=== PATIENT | female | born 1980 | race Caucasian/White ===

== ENCOUNTER → 2020-12-25 | Outpatient (CLI) | payer BC ==
--- NOTE | 2020-12-26 10:11 | MM ---
Reason for exam: screening (asymptomatic). Last mammogram was performed 6 years ago. History: Family history of breast cancer in mother at age 50 and breast cancer in maternal aunt. Took hormonal contraceptives for 8 years beginning at age 15. Physical Findings: A clinical breast exam by your physician is recommended on an annual basis and results should be correlated with mammographic findings. MG Screening Mammo w CAD Bilateral CC and MLO view(s) were taken. Prior study comparison: January 02, 2015, bilateral MG diagnostic mammo w CAD PEDRITO. The breast tissue is heterogeneously dense. This may lower the sensitivity of mammography. Finding: There is a 9 mm indistinct round mass located 6-7 cm from the nipple in the middle, central position of the left breast. There is a chronic nodularity in the right breast. New finding since January 02, 2015. ASSESSMENT: Incomplete: need additional imaging evaluation, BI-RAD 0 RECOMMENDATION: Special view mammogram and ultrasound of the left breast. [facility] will attempt to contact patient to return for supplemental views and ultrasound.
== END | disposition home or self-care (01) ==
LOC: RADMAMWWP 09:55
PROVIDERS: ATTEND Pediatrics
DX: Z12.31 Encounter for screening mammogram for malignant neoplasm of breast (principal); Z80.3 Family history of malignant neoplasm of breast
CPT/HCPCS: 77067

== ENCOUNTER → 2021-01-08 | Outpatient (CLI) | payer BC ==
--- NOTE | 2021-01-08 11:49 | MM ---
Reason for exam: additional evaluation requested from abnormal screening. Last mammogram was performed less than 1 month ago. History: Family history of breast cancer in mother at age 50 and breast cancer in maternal aunt. Took hormonal contraceptives for 8 years beginning at age 15. Physical Findings: Nurse did not find any significant physical abnormalities on exam. MG Work Up Mamm w CAD LT Spot compression CC, spot compression MLO, and LM view(s) were taken of the left breast. Prior study comparison: December 25, 2020, bilateral MG screening mammo w CAD. January 02, 2015, bilateral MG diagnostic mammo w CAD PEDRITO. The breast tissue is heterogeneously dense. This may lower the sensitivity of mammography. Finding: There is a 8-10 mm round mass located 6-7 cm from the nipple in the middle position of the left breast, persists on additional views. These results were verbally communicated with the patient and result sheet given to the patient on 01/08/21. ASSESSMENT: Incomplete: need additional imaging evaluation, BI-RAD 0 RECOMMENDATION: Ultrasound of the left breast.
--- NOTE | 2021-01-08 11:51 | USB ---
Reason for exam: additional evaluation requested from abnormal screening. History: Family history of breast cancer in mother at age 50 and breast cancer in maternal aunt. Took hormonal contraceptives for 8 years beginning at age 15. US Breast Workup Limited LT Left limited breast ultrasound including focal area of concern, retroareolar and axilla demonstrates a 0.3 x 0.3 x 0.2cm oval, cystic lesion at 12 o'clock, a 0.3 x 0.3 x 0.3cm oval, cystic lesion at 3 o'clock, a 0.8 x 0.3 x 0.3cm oval, cystic cluster at 3 o'clock and a 1.1 x 1.3 x 1.0cm oval lymph node at the axilla. These results were verbally communicated with the patient and result sheet given to the patient on 01/08/21. ASSESSMENT: Probably benign, BI-RAD 3 RECOMMENDATION: Follow-up diagnostic mammogram of the left breast in 6 months.
--- NOTE | 2021-01-08 14:05 | XR ---
EXAMINATION TYPE: XR chest 2V DATE OF EXAM: 01/08/2021 COMPARISON: 02/27/2016 HISTORY: Chest pain TECHNIQUE: Frontal and lateral views of the chest are obtained. FINDINGS: There is no focal air space opacity. No evidence for pneumothorax. No pleural effusion. The cardiac silhouette size is within normal limits. The osseous structures are grossly intact. IMPRESSION: 1. No acute cardiopulmonary process.
== END | disposition home or self-care (01) ==
LOC: RADMAMWWP 10:05
PROVIDERS: ATTEND Pediatrics
DX: N63.25 Unspecified lump in the left breast, overlapping quadrants (principal); Z80.3 Family history of malignant neoplasm of breast
CPT/HCPCS: 71046; 77065

== ENCOUNTER → 2025-01-03 | Outpatient (CLI) | payer OTHER ==
--- NOTE | 2025-01-04 12:27 | MR ---
EXAMINATION TYPE: MR knee LT wo con DATE OF EXAM: 01/03/2025 5:40 PM COMPARISON: MR knee 05/31/2023. 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 No Gadolinium was given. IV Contrast: mL (none if empty) FINDINGS: Medial meniscus: Intact Medial femorotibial cartilage: Grade-II chondromalacia. Medial collateral ligament: Intact Lateral meniscus: Intact Lateral femorotibial cartilage: Grade-II chondromalacia. Lateral collateral ligament complex: Intact Patellofemoral alignment: Normal Patellofemoral cartilage: Severe degeneration with full-thickness cartilage loss and subchondral bony edema involving the patellar lateral and medial facet. Extensor mechanism: Intact. Joint/bursal fluid: None. Muscles/tendons: Increased PD signal within the medial head of the gastrocnemius near its origin with cystic change. The patellar tendon, quadriceps tendon, IT band, pes anserinus tendons, semimembranos us tendon, popliteus tendon, and biceps femoris tendon are all within normal limits. Bone marrow: Bony edema within the patellar medial patellar facet. Additional high PD with edema near the posterior medial femoral condyle near the origin of the medial head of the gastrocnemius.. Anterior cruciate ligament: Intact. Posterior cruciate ligament: Intact. Soft tissues: Soft tissue marker the anterior knee correlates with cystic lesion just anterior to the patellar retinaculum on the right measuring 10 x 6 mm. Just deep to the retinaculum is more cyst ic change. Series 411 image 25. Additional cystic change just deep to the medial retinaculum possibly migrated ganglion cyst from the joint space itself series 411 image 18 and series 411 image 23. IMPRESSION: 1. Palpable marker along the anterior medial leg correlates with 10 x 6 mm small subcutaneous cystic lesion just anterior to the patellar medial retinaculum. Correlate for history of trauma. Additional ganglion cysts thought to be migrated from the joint just deep to the medial patellar retinaculum. F indings are new from 05/31/2023. 2. Severe degeneration changes of patellofemoral joint with bony edema within the patella. 3. Tendinosis of the origin of the medial head of the gastrocnemius. 4. Bony edema within the medial posterior femoral condyle are clear versus secondary to tendinosis o f the medial head of gastrocnemius first trauma. Correlate clinically. [facility], , 01/04/2025 12:25 PM
== END | disposition home or self-care (01) ==
LOC: RADMRIMAIN 16:51
PROVIDERS: ATTEND Orthopaedic Surgery
DX: D17.24 Benign lipomatous neoplasm of skin and subcutaneous tissue of left leg (principal); D49.2 Neoplasm of unspecified behavior of bone, soft tissue, and skin; M67.462 Ganglion, left knee; M17.12 Unilateral primary osteoarthritis, left knee; R60.9 Edema, unspecified; M62.89 Other specified disorders of muscle

== ENCOUNTER → 2025-01-17 | Day surgery (SDC) | payer BC, OTHER ==
[2025-01-16 11:29] VITALS: BMI 40.8
[~2025-01-17] MED LIST: LIDOCAINE 1% (10MG/ML) FOR IV START INTRADERMA PRN; LIDOCAINE 1% INJ 10MG/ML (20 ML MDV) ONE; PROPOFOL 10 MG/ML 20 ML VIAL IV ONE
[2025-01-17 06:20] VITALS: TEMP 97.2
[2025-01-17] MEDS: LACTATED RINGERS 1,000 ML IV SCH (06:33)
[2025-01-17] MEDS: IV FLUID CONTINUATION 1,000 ML IV ONE (06:34)
--- NOTE | 2025-01-17 07:27 | P.PCN ---
Date of Procedure: 01/17/25 Procedure(s) Performed: Brief history: Patient is a pleasant 44-year-old white female scheduled for an elective upper endoscopy as well as colonoscopy as a part of evaluation of lower EXTR history of GERD and screening for colon cancer Procedure performed: Esophagogastroduodenoscopy with biopsy Colonoscopy with snare polypectomy with biopsy Preoperative diagnosis: GERD Screening for colon cancer Anesthesia: MAC Procedure: After informed consent was obtained from the patient was brought into the end oscopy unit and IV sedation was administered by anesthesia under continuous monitoring. Initially upper endoscopy was done. The Olympus GF 160 video endoscope was inserted inserted into the mouth and esophagus intubated without any difficulty and was gradually advanced into the stomach and duodenum and carefully examined. The bulb and second part of the duodenum appeared normal. The scope was then withdrawn into the stomach adequately insufflated with air and upon careful examination the antrum had mild gastritis and biopsies were done from this area. Mucosa d body, cardia and fundus appeared normal. The scope was then withdrawn into the esophagus. The GE junction was located at 40 cm to the incisors. It appeared regular with no erythema erosions or ulcerations. Rest of the esophagus appeared normal. Patient tolerated the procedure well. At this time the patient continued to remain sedation. Initial digital rectal examination was normal. Olympus CF 160 video colonoscope was then inserted into the rectum and gradually advanced to the cecum without any difficulty. Careful examination was performed as the scope was gradually being withdrawn. The prep was excellent. The cecum, had a 2 cm flat polyp that was removed by piecemeal snare polypectomy followed by multiple biopsies and complete polypectomy accomplished. Rest of the ascending colon, transverse colon, descending colon, sigmoid colon and rectum appeared normal. Retroflexion was performed in the rectum and no lesions were noted. Patient tolerated the procedure well. Impression: 1. Upper endoscopy revealed mild antral gastritis but no active esophagitis or Barbosa's esophagus 2. Colonoscopy revealed 2 cm flat cecal polyp status post piecemeal snare polypectomy Recommendations: Findings of this examination were discussed with the patient as well as her family. She was advised to follow-up with the biopsy results. If the biopsy reveals adenoma she can have repeat colonoscopy in 3 years.
[2025-01-17 07:46] VITALS: BP 106/71; PULSE 63; RESP 12
== END ==
LOC: ORWHC2ENDO 06:00
PROVIDERS: ATTEND Internal Medicine Gastroenterology
DX: Z12.11 Encounter for screening for malignant neoplasm of colon (principal); K29.50 Unspecified chronic gastritis without bleeding; K63.5 Polyp of colon; K21.9 Gastro-esophageal reflux disease without esophagitis; F41.9 Anxiety disorder, unspecified; F32.A Depression, unspecified; L23.1 Allergic contact dermatitis due to adhesives; Z87.891 Personal history of nicotine dependence; Z79.899 Other long term (current) drug therapy
CPT/HCPCS: 88305; 45385; 43239; J2003; J2704